=== PATIENT | female | born 1980 | race Caucasian/White ===

== ENCOUNTER 2018-01-17 13:00 | Outpatient (RCR) | payer MEDICAID, SELFPAY ==
--- NOTE | 2018-01-08 10:26 | COCO.CNN ---
Primary Reason for Visit Substance Abuse (TOBACCO) Referral to Care Coordination Referral to Care Coordination: No Referral to Services: No - Referral From Referral From: Self Care Plan - Plan of Care Assessment/Background: 01/03/2018. Saw client in office for tobacco quit. two weeks with NRT patch 21 mg. Plan of Care: scheduled check in two weeks, prep to taper
--- NOTE | 2018-01-17 15:28 | COCO.CNN ---
Primary Reason for Visit Substance Abuse (TOBACCO) Referral to Care Coordination Referral to Care Coordination: No Referral to Services: No - Referral From Referral From: Self Care Plan - Plan of Care Assessment/Background: 01/17/2018. Client is in succesful tobacco quit attempt. tapering to 14 mg patch. Plan of Care: follow up in ten days [facility] Self Management Plan Complete?: Yes Self Management Goals: Quit tobacco Confidence Level (enter 1-10): 9 Action Plan/Progress: 1. taper to 14 mg patch. 2. remain smoke free
== END 2018-07-25 13:00 ==
LOC: COCO 13:00
PROVIDERS: PCP Nurse Practitioner Family; Visit Provider Nurse Practitioner Family
DX: R69 Illness, unspecified (principal)

== ENCOUNTER 2018-11-19 13:35 | Outpatient (REF) | payer MEDICAID, SELFPAY | END 2018-11-19 13:55 | LOC: NCHCN 13:35 | PROVIDERS: PCP Nurse Practitioner Family; Visit Provider Specialist/Technologist Athletic Trainer | DX: J02.9 Acute pharyngitis, unspecified (principal) | CPT/HCPCS: 87070 ==

== ENCOUNTER 2019-02-09 10:13 | Outpatient (REF) | payer MEDICAID, SELFPAY ==
[2019-02-12 14:05] LABS: Helicobacter pylori Ag, Feces Positive (NEGAT)
== END 2019-02-09 10:33 ==
LOC: NCHCN 10:13
PROVIDERS: PCP Family Medicine; Visit Provider Family Medicine
DX: R10.13 Epigastric pain (principal); R19.7 Diarrhea, unspecified
CPT/HCPCS: 87338

== ENCOUNTER 2019-05-07 10:25 | Outpatient (CLI) | payer MEDICAID, SELFPAY ==
--- NOTE | 2019-05-07 10:30 | DI.RAD_ITS ---
SYMPTOM/DIAGNOSIS: RT SHOULDER PAIN RIGHT SHOULDER: The bony structures are normally mineralized. The glenohumeral joint is intact. There are mild degenerative changes involving the AC joint. No soft tissue calcifications are evident.
== END 2019-05-07 10:45 ==
PROVIDERS: PCP Family Medicine; Visit Provider Physician Assistant
DX: M25.511 Pain in right shoulder (principal); M19.011 Primary osteoarthritis, right shoulder
CPT/HCPCS: 73030

== ENCOUNTER 2019-05-08 15:41 | Outpatient (REF) | payer MEDICAID, SELFPAY ==
[2019-05-08 19:37] LABS: Abs Immature Grans 0.01 k/cumm (0.0-0.09); Absolute Basophil Count 0.05 k/cumm (0.0-0.2); Absolute Eosinophil Count 0.36 k/cumm (0.0-0.7); Absolute Lymphocyte Count 2.46 k/cumm (1.2-3.4); Absolute Monocyte Count 1.02 k/cumm (0.11-0.7); Absolute Neutrophil Count 4.41 k/cumm (1.2-6.7); Basophils % 0.6; Eosinophils % 4.3; HCT 36.8 % (36.0-46.0); HGB 12.2 g/dL (12.0-15.5); Immature Grans % 0.1; Lymphocytes % 29.6; Mean Corp. HGB Concentration 33.2 g/dL (32.0-36.0); Mean Corpuscular Hemoglobin 27.9 pg (27.0-33.0); Mean Corpuscular Volume 84.2 fL (80-95); Mean Platelet Volume 11.9 fL (8.0-11.0); Monocytes % 12.3; Neutrophils % 53.1; Platelet Count 253 x1000/uL (130-400); RBC 4.37 m/cumm (4.00-5.20); RBC Distribution Width 13.5 % (11.7-14.6); White Blood Cell Count 8.31 k/cumm (4.4-10.8)
[2019-05-08 20:09] LABS: FREE T4 1.33 ng/dL (0.76-1.46); TSH 0.03 uIU/mL (0.358-3.74)
[2019-05-10 16:29] LABS: T3,Free 4.8 pg/ml (2.8-5.3)
== END 2019-05-08 16:01 ==
LOC: NCHCN 15:41
PROVIDERS: PCP Family Medicine; Visit Provider Family Medicine
DX: R05 Cough (principal); E03.9 Hypothyroidism, unspecified
CPT/HCPCS: 84439; 84443; 84481; 85025

== ENCOUNTER 2019-05-14 00:43 | Outpatient (CLI) | payer MEDICAID, SELFPAY ==
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
--- NOTE | 2019-05-14 16:29 | DI.VRAD_ITS ---
EXAM: MR Right Upper Extremity Joint Without Contrast, Shoulder EXAM DATE/TIME: 05/14/2019 8:40 AM CLINICAL HISTORY: 38 years old, female; Pain; Shoulder; Right; Patient HX: Numbness 4th and 5th digit TECHNIQUE: Imaging protocol: MR of the Right upper extremity without contrast. Exam focused on the shoulder. COMPARISON: CR XR shoulder RT complete 2+V 05/07/2019 10:32 AM FINDINGS: TENDONS: Supraspinatus: Partial-thickness undersurface tear near the femoral attachment site. Infraspinatus: Unremarkable. No evidence of tear. Subscapularis: Unremarkable. No evidence of tear. Teres minor: Unremarkable. No evidence of tear. Biceps brachii, long head: Horizontal split tear of the tendon as it overlies the humeral head. LIGAMENTS: Glenohumeral: Unremarkable. Glenoid labrum: Unremarkable. No evidence of tear. Cartilage: Unremarkable. Fluid: No joint effusion. Muscles: Unremarkable. Bones/joints: Mild a.c. joint arthrosis. No acute osseous findings. Remaining marrow signal appears normal. The IMPRESSION: 1. Partial-thickness supraspinatus tendon tear. 2. Biceps tendon long head horizontal split tear. 3. Mild a.c. joint arthrosis. Dictated and Authenticated by: Mohan Ortiz MD. Ordering:JERSEY Dexter MD
== END 2019-05-14 01:03 ==
PROVIDERS: PCP Family Medicine; Visit Provider Orthopaedic Surgery
DX: M75.81 Other shoulder lesions, right shoulder (principal); M25.511 Pain in right shoulder; R60.0 Localized edema; M75.101 Unspecified rotator cuff tear or rupture of right shoulder, not specified as traumatic
CPT/HCPCS: 73221

== ENCOUNTER 2019-05-14 15:33 | Outpatient (REF) | payer MEDICAID, SELFPAY ==
[2019-05-15 12:31] LABS: Chlamydia Result Negative; GC Result Negative; Specimen Description CERVIX
== END 2019-05-14 15:53 ==
LOC: LBN 15:33
PROVIDERS: PCP Family Medicine; Visit Provider Nurse Practitioner Family
DX: Z11.3 Encounter for screening for infections with a predominantly sexual mode of transmission (principal)
CPT/HCPCS: 87491; 87591

== ENCOUNTER 2019-10-30 11:53 | Outpatient (REF) | payer MEDICAID, SELFPAY ==
[2019-10-30 20:12] LABS: TSH 0.02 uIU/mL (0.36-3.74); Vitamin B12 299 pg/mL (193-986)
[2019-10-30 20:57] LABS: FREE T4 1.47 ng/dL (0.76-1.46)
[2019-11-01 16:31] LABS: T3, Total 226 ng/dL (97-169)
== END 2019-10-30 12:13 ==
LOC: NCHCN 11:53
PROVIDERS: PCP Family Medicine; Visit Provider Family Medicine
DX: E03.9 Hypothyroidism, unspecified (principal)
CPT/HCPCS: 82607; 84439; 84443; 84480

== ENCOUNTER 2020-01-21 11:45 | Outpatient (REF) | payer MEDICAID, SELFPAY ==
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
== END 2020-01-21 12:05 ==
LOC: LBN 11:45
PROVIDERS: PCP Family Medicine; Visit Provider Nurse Practitioner Family
DX: Z12.4 Encounter for screening for malignant neoplasm of cervix (principal); Z11.51 Encounter for screening for human papillomavirus (HPV)
CPT/HCPCS: 88142; 87624

== ENCOUNTER 2021-07-03 13:55 | Outpatient (REF) | payer MEDICAID, SELFPAY ==
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
[2021-07-04 15:40] LABS: Chlamydia Result Negative (Negative); GC Result Negative (Negative)
== END 2021-07-03 13:56 | disposition home or self-care (01) ==
LOC: LBN 13:55
PROVIDERS: PCP Family Medicine; Visit Provider Nurse Practitioner Family
DX: Z11.3 Encounter for screening for infections with a predominantly sexual mode of transmission (principal); Z12.4 Encounter for screening for malignant neoplasm of cervix; Z11.51 Encounter for screening for human papillomavirus (HPV); R87.810 Cervical high risk human papillomavirus (HPV) DNA test positive
CPT/HCPCS: 87491; 87591; 88142; 87624

== ENCOUNTER 2021-07-07 10:34 | Outpatient (REF) | payer MEDICAID, SELFPAY ==
[2021-07-07 14:59] LABS: HGB 13.3 g/dL (11.2-15.7); MCH 29.4 pg (27.0-33.0); MCHC 33.3 % (32.0-36.0); MCV 88.5 fL (80-95); MPV 11.8 fL (8.0-11.0); Platelet Count 308 10^3/uL (130-400); RBC 4.52 10^6/uL (3.93-5.22); RDW 13.6 % (11.7-14.6); RDW-SD 44.3 fL; WBC 12.67 10^3/uL (4.4-10.8)
[2021-07-07 15:26] LABS: ALT 25 U/L (14-59); AST 19 U/L (15-37); Albumin 3.9 g/dL (3.4-5.0); Alkaline Phosphatase 68 U/L (46-116); Anion Gap 5.8 mmol/L (3-11); BUN 9 mg/dL (7-18); Bilirubin, Total 0.6 mg/dL (0.2-1.0); CO2 23.2 mmol/L (21.0-32.0); CREATININE 0.8 mg/dL (0.55-1.02); Calculated LDL 107 mg/dL (<100); Chloride 107 mmol/L (98-107); Cholesterol 165 mg/dL (<200); Glucose 94 mg/dL (74-106); HDL Cholesterol 44 mg/dL (40-60); Potassium 4.3 mmol/L (3.5-5.1); Sodium 136 mmol/L (136-145); TSH 3.57 uIU/mL (0.36-3.74); Total Protein 7.2 g/dL (6.4-8.2); Triglyceride 70 mg/dL (<150)
[2021-07-10 09:37] LABS: Vitamin D 25 Total 32.8 ng/mL (30-100)
== END 2021-07-07 10:35 | disposition home or self-care (01) ==
LOC: NCHCN 10:34
PROVIDERS: PCP Family Medicine; Visit Provider Nurse Practitioner Family
DX: E55.9 Vitamin D deficiency, unspecified (principal); R10.11 Right upper quadrant pain; E03.9 Hypothyroidism, unspecified; E78.5 Hyperlipidemia, unspecified
CPT/HCPCS: 80053; 80061; 82306; 85027; 84443

== ENCOUNTER 2021-07-19 01:36 | Outpatient (CLI) | payer MEDICAID, SELFPAY ==
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
== END 2021-07-19 01:56 ==
PROVIDERS: PCP Family Medicine; Visit Provider Nurse Practitioner Family
DX: M25.561 Pain in right knee (principal)
CPT/HCPCS: 73562

== ENCOUNTER 2021-07-27 01:52 | Outpatient (CLI) | payer MEDICAID, SELFPAY ==
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
== END 2021-07-27 02:12 ==
PROVIDERS: PCP Family Medicine; Visit Provider Nurse Practitioner Family
DX: N93.9 Abnormal uterine and vaginal bleeding, unspecified (principal)
CPT/HCPCS: 76830; 76856

== ENCOUNTER 2021-08-07 08:50 | Outpatient (REF) | payer MEDICAID, SELFPAY ==
[2021-08-07 21:32] LABS: TSH (W/Ref FT4) 9.18 uIU/mL (0.36-3.74)
== END 2021-08-07 08:51 | disposition home or self-care (01) ==
LOC: NCHCN 08:50
PROVIDERS: PCP Family Medicine; Referring Provider Nurse Practitioner Family; Visit Provider Nurse Practitioner Family
DX: E03.9 Hypothyroidism, unspecified (principal)
CPT/HCPCS: 84439; 84443; 84481

== ENCOUNTER 2021-09-29 14:52 | Outpatient (REF) | payer MEDICAID, SELFPAY ==
[2021-09-29 19:28] LABS: FREE T4 1.14 ng/dL (0.76-1.46)
== END 2021-09-29 14:53 | disposition home or self-care (01) ==
LOC: NCHCN 14:52
PROVIDERS: PCP Family Medicine; Visit Provider Nurse Practitioner Family
DX: E03.9 Hypothyroidism, unspecified (principal)
CPT/HCPCS: 84439

== ENCOUNTER 2022-08-10 09:24 | Outpatient (REF) | payer MEDICAID, SELFPAY ==
[2022-08-10 15:12] LABS: FREE T4 0.89 ng/dL (0.76-1.46); TSH 18.32 uIU/mL (0.36-3.74)
== END 2022-08-10 09:25 | disposition home or self-care (01) ==
LOC: NCHCN 09:24
PROVIDERS: PCP Family Medicine; Visit Provider Nurse Practitioner Family
DX: E03.9 Hypothyroidism, unspecified (principal); M25.552 Pain in left hip; Z00.00 Encounter for general adult medical examination without abnormal findings
CPT/HCPCS: 84439; 84443

== ENCOUNTER → 2022-08-16 12:12 | Outpatient (CLI) | payer MEDICAID, SELFPAY ==
--- NOTE | 2022-08-16 | DI.RAD_ITS ---
Exam(s) XR HIP LT COMPLETE AP PELVIS EXAM: XR HIP LT COMPLETE AP PELVIS INDICATION: LT HIP PAIN, M25.552. COMPARISON: CR LUMBAR SPINE COMPLETE from 04/16/2018 TECHNIQUE: 2D digital imaging was performed. Two views. FINDINGS: the hip joint spaces are well maintained. There is mild acetabular spurring bilaterally. SI joints an d pubic symphysis are unremarkable. IMPRESSION: Mild degenerative changes. DATA REPOSITORY: RADIATION DOSE DELIVERED:
== END ==
PROVIDERS: PCP Family Medicine; Visit Provider Family Medicine
DX: M16.12 Unilateral primary osteoarthritis, left hip (principal)
CPT/HCPCS: 73502

== ENCOUNTER 2022-08-28 16:51 | Outpatient (REF) | payer MEDICAID, SELFPAY ==
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
[2022-08-29 14:45] LABS: Chlamydia Result Negative (Negative); GC Result Negative (Negative)
== END 2022-08-28 16:52 | disposition home or self-care (01) ==
LOC: LBN 16:51
PROVIDERS: PCP Family Medicine; Visit Provider Obstetrics & Gynecology
DX: R10.2 Pelvic and perineal pain (principal); Z12.4 Encounter for screening for malignant neoplasm of cervix; Z11.51 Encounter for screening for human papillomavirus (HPV); A59.01 Trichomonal vulvovaginitis; Z11.3 Encounter for screening for infections with a predominantly sexual mode of transmission
CPT/HCPCS: 87491; 87591; 88142; 87480; 87510; 87624; 87660

== ENCOUNTER 2023-04-25 17:03 | Outpatient (REF) | payer MEDICAID, SELFPAY ==
[2023-04-25 19:03] LABS: ESR 8 mm/hr (0-20)
[2023-04-25 19:28] LABS: FREE T4 0.98 ng/dL (0.76-1.46); TSH 0.87 uIU/mL (0.36-3.74)
[2023-04-25 20:10] LABS: Vitamin B12 257 pg/mL (193-986)
[2023-04-26 18:25] LABS: T3, Total 142 ng/dL (97-169)
[2023-04-29 10:15] LABS: Lyme Ab w Rflx to Lyme Confirm Negative (Negative)
[2023-04-29 13:52] LABS: HLA-B27 Result Negative
[2023-04-29 15:21] LABS: ANA Interpretation Negative (Negative)
[2023-04-29 19:54] LABS: Anaplasma phagocytophilum Negative (Negative); B. miyamotoi PCR Negative (Negative); Babesia divergens/MO-1 Negative (Negative); Babesia duncani Negative (Negative); Babesia microti Negative (Negative); Ehrlichia chaffeensis Negative (Negative); Ehrlichia ewingii/canis Negative (Negative); Ehrlichia muris eauclairensis Negative (Negative)
== END 2023-04-25 17:04 | disposition home or self-care (01) ==
LOC: NCHCN 17:03
PROVIDERS: PCP Family Medicine; Visit Provider Family Medicine
DX: M54.16 Radiculopathy, lumbar region (principal); H53.9 Unspecified visual disturbance; M25.552 Pain in left hip; E03.9 Hypothyroidism, unspecified
CPT/HCPCS: 85652; 86812; 87798; 82607; 84439; 84443; 84480; 86038; 86140; 86618

== ENCOUNTER 2023-05-20 11:02 | Outpatient (REF) | payer MEDICAID, SELFPAY ==
[2023-05-20 17:49] LABS: Abs Immature Grans 0.04 10^3/uL (0.0-0.06); Absolute Basophil Count 0.07 10^3/uL (0.0-0.2); Absolute Eosinophil Count 0.41 10^3/uL (0.0-0.7); Basophils % 0.6; Eosinophils % 3.4; HCT 38.7 % (36.0-46.0); HGB 12.9 g/dL (11.2-15.7); Immature Grans % 0.3; Lymphocytes % 18.9; MCH 28.4 pg (27.0-33.0); MCHC 33.3 % (32.0-36.0); MCV 85 fL (80-95); MPV 11.8 fL (8.0-11.0); Monocytes % 7.9; Neutrophils % 68.9; Platelet Count 252 10^3/uL (130-400); RBC 4.55 10^6/uL (3.93-5.22); RDW 14.5 % (11.7-14.6); RDW-SD 44.6 fL; WBC 12.09 10^3/uL (4.4-10.8)
[2023-05-20 17:58] LABS: Absolute Lymphocyte Count 2.29 10^3/uL (1.2-3.4); Absolute Monocyte Count 0.96 10^3/uL (0.1-0.8); Absolute Neutrophil Count 8.33 10^3/uL (1.2-6.7)
[2023-05-20 19:17] LABS: ALT 29 U/L (14-59); AST 23 U/L (15-37); Albumin 3.6 g/dL (3.4-5.0); Alkaline Phosphatase 88 U/L (46-116); Anion Gap 10.5 mmol/L (3-11); BUN 13 mg/dL (7-18); Bilirubin, Total 0.4 mg/dL (0.2-1.0); CO2 25.5 mmol/L (21.0-32.0); CREATININE 0.7 mg/dL (0.55-1.02); Calcium 8.8 mg/dL (8.5-10.1); Chloride 106 mmol/L (98-107); Estimated GFR 109.98 (mL/min/1.73m2); Glucose 92 mg/dL (74-106); Potassium 4.3 mmol/L (3.5-5.1); Sodium 142 mmol/L (136-145); Total Protein 6.8 g/dL (6.4-8.2)
[2023-05-22 14:22] LABS: Hepatitis C Ab w Rflx HCV PCR Negative (Negative)
[2023-05-22 17:00] LABS: HIV-1/2 Ag & Ab Screen Negative (Negative)
== END 2023-05-20 11:03 | disposition home or self-care (01) ==
LOC: NCHCN 11:02
PROVIDERS: PCP Family Medicine; Visit Provider Family Medicine
DX: B39.9 Histoplasmosis, unspecified (principal); H53.9 Unspecified visual disturbance; R10.11 Right upper quadrant pain; F10.90 Alcohol use, unspecified, uncomplicated; Y90.9 Presence of alcohol in blood, level not specified
CPT/HCPCS: 80053; 86698; 86803; 87389; 85025

== ENCOUNTER 2023-06-06 02:08 | Outpatient (CLI) | payer MEDICAID, SELFPAY ==
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
== END 2023-06-06 02:28 ==
LOC: DI 02:08
PROVIDERS: PCP Family Medicine; Visit Provider Family Medicine
DX: Q44.0 Agenesis, aplasia and hypoplasia of gallbladder (principal); R10.11 Right upper quadrant pain; Z90.49 Acquired absence of other specified parts of digestive tract; Z81.1 Family history of alcohol abuse and dependence
CPT/HCPCS: 76705

== ENCOUNTER 2023-06-17 14:53 | Outpatient (REF) | payer MEDICAID, SELFPAY ==
[2023-06-17 16:53] LABS: TSH (W/Ref FT4) 0.08 uIU/mL (0.36-3.74)
[2023-06-17 17:17] LABS: FREE T4 1.32 ng/dL (0.76-1.46)
== END 2023-06-17 14:54 | disposition home or self-care (01) ==
LOC: NCHCN 14:53
PROVIDERS: PCP Family Medicine; Visit Provider Family Medicine
DX: E03.9 Hypothyroidism, unspecified (principal)
CPT/HCPCS: 84439; 84443

== ENCOUNTER 2023-09-06 17:11 | Outpatient (REF) | payer MEDICAID, SELFPAY ==
[2023-09-06 15:56] LABS: Anion Gap 10.3 mmol/L (3-11); BUN 14 mg/dL (7-18); CO2 22.7 mmol/L (21.0-32.0); CREATININE 0.8 mg/dL (0.55-1.02); Calcium 9.2 mg/dL (8.5-10.1); Chloride 104 mmol/L (98-107); Estimated GFR 93.12 (mL/min/1.73m2); Glucose 92 mg/dL (74-106); Potassium 4.1 mmol/L (3.5-5.1); Sodium 137 mmol/L (136-145)
== END 2023-09-06 17:12 | disposition home or self-care (01) ==
LOC: NCHCN 17:11
PROVIDERS: PCP Family Medicine; Visit Provider Family Medicine
DX: I10 Essential (primary) hypertension (principal)
CPT/HCPCS: 80048

== ENCOUNTER 2023-09-07 06:44 | Emergency (ER) | payer MEDICAID, SELFPAY ==
[2023-09-07] VITALS (33 sets, daily range): BP systolic 136–177; BP diastolic 86–98; PULSE 54–79; RESP 9–30; TEMP 36; O2SAT 96–100
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
[2023-09-07 07:16] LABS: Abs Immature Grans 0.17 10^3/uL (0.0-0.06); Absolute Eosinophil Count 0.32 10^3/uL (0.0-0.7); Absolute Lymphocyte Count 2.06 10^3/uL (1.2-3.4); Absolute Monocyte Count 1.32 10^3/uL (0.1-0.8); Basophils % 0.5; Eosinophils % 1.7; HCT 38.7 % (36.0-46.0); HGB 12.8 g/dL (11.2-15.7); Immature Grans % 0.9; Lymphocytes % 11.1; MCH 28.3 pg (27.0-33.0); MCHC 33.1 % (32.0-36.0); MCV 86 fL (80-95); MPV 11.5 fL (8.0-11.0); Monocytes % 7.1; Neutrophils % 78.7; Platelet Count 288 10^3/uL (130-400); RBC 4.52 10^6/uL (3.93-5.22); RDW 14.6 % (11.7-14.6); RDW-SD 46.2 fL; WBC 18.58 10^3/uL (4.4-10.8)
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
[2023-09-07 07:18] LABS: Absolute Basophil Count 0.09 10^3/uL (0.0-0.2); Absolute Neutrophil Count 14.62 10^3/uL (1.2-6.7)
[2023-09-07] MEDS: HYDROmorphone 2 MG/ML SYR IVP (07:22)
[2023-09-07 07:27] LABS: PTT Activated 22.5 sec (23.6-32.8); Prothrombin Time 10.3 sec (9.1-11.1)
[2023-09-07] MEDS: Normal Saline - Diluent 50 ML VIAL IJ (07:30)
[2023-09-07 07:31] LABS: Lipase 70 U/L (16-77)
[2023-09-07 07:33] LABS: ALT 60 U/L (14-59); AST 94 U/L (15-37); Albumin 3.5 g/dL (3.4-5.0); Alkaline Phosphatase 80 U/L (46-116); Anion Gap 9.7 mmol/L (3-11); BUN 16 mg/dL (7-18); Bilirubin, Total 0.5 mg/dL (0.2-1.0); CO2 23.3 mmol/L (21.0-32.0); Calcium 8.6 mg/dL (8.5-10.1); Chloride 107 mmol/L (98-107); Estimated GFR 71.24 (mL/min/1.73m2); Glucose 121 mg/dL (74-106); Magnesium 2.2 mg/dL (1.8-2.4); Potassium 3.7 mmol/L (3.5-5.1); Sodium 140 mmol/L (136-145); Total Protein 7.1 g/dL (6.4-8.2)
[2023-09-07] MEDS: Omnipaque 350 MG/ML 100 ML BTL IJ (07:33)
[2023-09-07] MEDS: Normal Saline Flush 10 ML SYR IVP (07:34)
[2023-09-07 07:45] LABS: ETHANOL BLOOD < 3.0 mg/dL (<10)
[2023-09-07] MEDS: Normal Saline 1,000 ML 30 ML IV (08:06)
[2023-09-07 08:21] LABS: Bilirubin Negative (Negative); Blood Large (Negative); Clarity Sl Cloudy (Clear); Glucose Negative (Negative); Ketones Negative (Negative); Leukocyte Esterase Negative (Negative); Nitrite Negative (Negative); Urobilinogen 0.2 mg/dL (Up to 0.2); pH 5.5 (5-8)
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
[2023-09-07 08:27] LABS: Bacteria Few HPF (Negative); Crystals Negative HPF (Negative); Epithelial Cells Moderate HPF (Negative); Mucus Moderate (Negative); WBC 0-2 HPF (0-5)
[2023-09-07 08:28] LABS: C & S Indicated? No/Sq. Contamination; Casts 0-2 Coarse Granular LPF (Negative)
[2023-09-07 08:34] LABS: *AMPHETAMINES SCREEN URINE Negative (Negative); *BARBITURATES SCREEN URINE Negative (Negative); *BENZODIAZEPINES SCREEN URINE Negative (Negative); Cannabinoids THC Positive (Negative); Cocaine Screen,Urine Negative (Negative); METHADONE URINE SCREEN Negative (Negative); OPIATES URINE SCREEN Positive (Negative)
[2023-09-07 08:36] LABS: Tricyclic Antidepressants Negative (Negative)
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
[2023-09-07] MEDS: HYDROmorphone 2 MG/ML SYR 1 MG IVP (09:10)
== END 2023-09-07 10:26 | disposition short-term general hospital (02) ==
PROVIDERS: Emergency Medicine; Emergency Provider Emergency Medicine; PCP Family Medicine
DX: S22.42XA Multiple fractures of ribs, left side, initial encounter for closed fracture (principal); S12.101A Unspecified nondisplaced fracture of second cervical vertebra, initial encounter for closed fracture; S32.011A Stable burst fracture of first lumbar vertebra, initial encounter for closed fracture; S22.088A Other fracture of T11-T12 vertebra, initial encounter for closed fracture; S06.6X0A Traumatic subarachnoid hemorrhage without loss of consciousness, initial encounter; S27.322A Contusion of lung, bilateral, initial encounter; V43.52XA Car driver injured in collision with other type car in traffic accident, initial encounter; Y92.413 State road as the place of occurrence of the external cause
CPT/HCPCS: 36415; 74177; 80053; 80307; 83690; 93005; 96361; 96374; 99285; 70450; 71045; 71260; 72125; 72170; 80320; 81003; 81015; 83735; 85025; 85610; 85730; 93010; J1170; J3490

== ENCOUNTER → 2023-10-03 01:23 | Outpatient (CLI) | payer MEDICAID, SELFPAY ==
--- NOTE | 2023-10-03 | DI.US_ITS ---
Exam(s) US ABDOMEN EXAM: US ABDOMEN CLINICAL HISTORY: ENLARGED RIGHT LIVER LOBE R16.0 TECHNIQUE: Ultrasound of complete upper abdomen performed using standard protocol. COMPARISON: US US ABDOMEN LIMITED from 06/06/[address] CHEST/ABD/PEL W from 09/07/2023 FINDINGS: There is no ascites evident. LIVER: There are no hepatic lesions evident nor obvious dilatation of intrahepatic ducts. Liver size appears upper normal. GALLBLADDER/BILIARY: Gallbladder surgically absent. The common hepatic duct isnot dilated, measuring 4mm at the level of fox hepatis. PANCREAS: There is no evidence of pancreatic mass nor dilatation of the pancreatic duct. SPLEEN: The spleen is not enlarged and there are no intrasplenic lesions evident. KIDNEYS:Kidneys exhibit normal size with no evidence of solid mass, calculus, nor hydronephrosis. No cortical cysts evident. ABDOMINAL AORTA: There is no evidence of abdominal aortic aneurysm. IVC: Normal diameter where visualized. IMPRESSION: 1. Gallbladder surgically absent. The biliary tree is not dilated 2. Liver size is upper normal. No obvious steatosis. No focal hepatic lesions. 3. There is no ascites. DATA REPOSITORY:
== END ==
PROVIDERS: PCP Family Medicine; Visit Provider Family Medicine
DX: Z90.49 Acquired absence of other specified parts of digestive tract (principal); R16.0 Hepatomegaly, not elsewhere classified
CPT/HCPCS: 76700

== ENCOUNTER 2023-10-03 08:57 | Emergency (ER) | payer MEDICAID, SELFPAY ==
[2023-10-03 08:59] VITALS: BP 159/106; PULSE 80; RESP 16; TEMP 37.2; O2SAT 98
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
[2023-10-03] MEDS: Cortisporin OTIC SUSP 10 ML BTL AD (09:34)
[2023-10-03 09:37] VITALS: BP 159/106; PULSE 80; RESP 16; TEMP 37.2; O2SAT 98
== END 2023-10-03 09:38 | disposition home or self-care (01) ==
LOC: ER 09:44
PROVIDERS: Emergency Provider Registered Nurse Emergency; PCP Family Medicine
DX: H60.91 Unspecified otitis externa, right ear (principal)
CPT/HCPCS: 99282

== ENCOUNTER 2023-10-07 19:01 | Outpatient (REF) | payer MEDICAID, SELFPAY ==
[2023-10-07 19:33] LABS: BUN 11 mg/dL (7-18); CREATININE 0.7 mg/dL (0.55-1.02); Calcium 9.4 mg/dL (8.5-10.1); Chloride 102 mmol/L (98-107); Glucose 101 mg/dL (74-106); Potassium 4.1 mmol/L (3.5-5.1); Sodium 138 mmol/L (136-145)
== END 2023-10-07 19:02 | disposition home or self-care (01) ==
LOC: NCHCN 19:01
PROVIDERS: PCP Family Medicine; Visit Provider Nurse Practitioner Family
DX: I10 Essential (primary) hypertension (principal)
CPT/HCPCS: 80048

== ENCOUNTER 2023-12-16 08:49 | Outpatient (CLI) | payer MEDICAID, SELFPAY ==
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
== END 2023-12-16 08:50 | disposition home or self-care (01) ==
PROVIDERS: PCP Family Medicine; Visit Provider Family Medicine
DX: Z04.3 Encounter for examination and observation following other accident (principal); X58.XXXA Exposure to other specified factors, initial encounter
CPT/HCPCS: 93246

== ENCOUNTER 2024-01-07 09:15 | Outpatient (CLI) | payer MEDICAID, SELFPAY | END 2024-01-07 09:16 | disposition home or self-care (01) | LOC: CARDOPNVT 09:15 | PROVIDERS: PCP Family Medicine; Visit Provider Internal Medicine Cardiovascular Disease | DX: R52 Pain, unspecified (principal); V89.2XXD Person injured in unspecified motor-vehicle accident, traffic, subsequent encounter ==

== ENCOUNTER 2024-01-21 17:47 | Outpatient (REF) | payer MEDICAID, SELFPAY ==
[2024-01-21 16:33] LABS: FREE T4 0.87 ng/dL (0.76-1.46); TSH 12.37 uIU/Ml (0.36-3.74)
[2024-01-21 17:26] LABS: Vitamin B12 413 pg/mL (193-986)
== END 2024-01-21 17:48 | disposition home or self-care (01) ==
LOC: NCHCN 17:47
PROVIDERS: PCP Family Medicine; Visit Provider Family Medicine
DX: E03.9 Hypothyroidism, unspecified (principal); E53.9 Vitamin B deficiency, unspecified
CPT/HCPCS: 82607; 84439; 84443

== ENCOUNTER 2024-01-31 02:09 | Outpatient (CLI) | payer MEDICAID, SELFPAY ==
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
== END 2024-01-31 02:10 | disposition home or self-care (01) ==
LOC: RT 02:09
PROVIDERS: PCP Family Medicine; Visit Provider Family Medicine
DX: S06.2XAA Diffuse traumatic brain injury with loss of consciousness status unknown, initial encounter (principal); X58.XXXA Exposure to other specified factors, initial encounter
CPT/HCPCS: 95819

== ENCOUNTER 2024-03-12 05:00 | Outpatient (CLI) | payer MEDICAID, SELFPAY ==
[2024-03-12 12:39] LABS: Hemoglobin A1C 5.4 % (<5.7)
[2024-03-12 12:51] LABS: Vitamin D 25 Total 36.2 ng/mL (30-100)
[2024-03-12 12:56] LABS: TSH (W/Ref FT4) 15.14 uIU/mL (0.36-3.74); Vitamin B12 325 pg/mL (193-986)
[2024-03-12 13:19] LABS: FREE T4 0.97 ng/dL (0.76-1.46)
== END 2024-03-12 05:01 | disposition home or self-care (01) ==
LOC: LOS 05:00
PROVIDERS: PCP Family Medicine; Visit Provider Internal Medicine Endocrinology, Diabetes & Metabolism
DX: E03.9 Hypothyroidism, unspecified (principal); E53.9 Vitamin B deficiency, unspecified; E55.9 Vitamin D deficiency, unspecified; Z68.41 Body mass index [BMI] 40.0-44.9, adult
CPT/HCPCS: 36415; 82306; 82607; 83036; 84439; 84443

== ENCOUNTER 2024-06-17 10:30 | Emergency (ER) | payer MEDICAID, SELFPAY ==
[2024-06-17 10:35] VITALS: BP 146/92; PULSE 78; RESP 16; TEMP 36.3; O2SAT 99
--- NOTE | 2024-06-17 10:45 | DI.RAD_ITS ---
Exam(s) XR THORACIC SPINE COMPLETE EXAM: XR THORACIC SPINE COMPLETE CLINICAL HISTORY: hx spinal fracture, back pain. TECHNIQUE: 2D digital imaging was performed of the thoracic spine. Three views were obtained. AP, swimmer's and lateral views were obtained. COMPARISON: CR,XR XR PORTABLE CHEST AP from 09/07/2023 FINDINGS: BONES: There is no fracture or destructive lesion. The vertebral bodies and posterior elements are un remarkable. Old left rib fractures are again noted. DISKS:There is a mild left convex curvature of the thoracic spine. Mild degenerative changes are pre sent throughout the thoracic spine characterized by joint space narrowing and small osteophytes. SOFT TISSUE: Visualized lungs are clear. IMPRESSION: 1. No acute fracture or subluxation in the thoracic spine. 2. Mild degenerative changes are present throughout the thoracic spine. DATA REPOSITORY: RADIATION DOSE DELIVERED:
--- NOTE | 2024-06-17 10:45 | DI.RAD_ITS ---
Exam(s) XR LUMBAR SPINE AP, LAT EXAM: XR LUMBAR SPINE AP, LAT CLINICAL HISTORY: hx spinal fracture, back pain. TECHNIQUE: 2D digital imaging was performed of the lumbar spine. Three images were obtained. AP, l ateral, and L5-S1 spot views were obtained. COMPARISON: CR XR KNEE RT 3V AP,LAT,ANTHONY from 07/19/[address] THORACIC LUMBAR SPINE REC from 09/07/2023 FINDINGS: BONES: No fracture or destructive lesion. There is again seen an old L1 compression fracture deformit y. No facet hypertrophy identified. DISKS: There is narrowing of the T12-L1 disc space. ALIGNMENT: Lumbar spinal alignment is within normal limits. No spondylolysis or spondylolisthesis. SOFT TISSUE: Vascular calcifications are present. IMPRESSION: 1. No acute fracture or subluxation. 2. Old L1 compression fracture deformity. DATA REPOSITORY: RADIATION DOSE DELIVERED:
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
[2024-06-17] MEDS: Dexamethasone 10 MG/ML VIAL PO (11:08)
[2024-06-17] MEDS: Cyclobenzaprine 10 MG TAB PO (11:08)
[2024-06-17] MEDS: Lidocaine 5% Patch 1 PATCH TP (11:09)
[2024-06-17] MEDS: Ketorolac 15 MG/ML VIAL IM (11:09)
== END 2024-06-17 12:17 | disposition home or self-care (01) ==
PROVIDERS: Emergency Provider Emergency Medicine; PCP Family Medicine
DX: M54.50 Low back pain, unspecified (principal); M54.6 Pain in thoracic spine; Z87.81 Personal history of (healed) traumatic fracture; W18.49XA Other slipping, tripping and stumbling without falling, initial encounter
CPT/HCPCS: 96372; 99284; 72072; 72100; 99283; J1100; J1885

== ENCOUNTER → 2024-06-24 01:09 | Outpatient (CLI) | payer MEDICAID, SELFPAY ==
--- NOTE | 2024-06-24 | DI.MAMMO_ITS ---
Exam(s) MAMMO SCREENING EXAM: MAMMO SCREENING CLINICAL HISTORY: SCREENING MAMMO Z12.31 TECHNIQUE: Mammograms were interpreted according to the usual protocol including computer analysis w [employer] CAD system, tomosynthesis and C-view imaging. COMPARISON: None. Baseline examination FINDINGS: The breasts are composed of scattered fibroglandular densities, Breast Density category B. No suspicious masses or suspicious microcalcifications are seen. No skin thickening or abnormal axillary lymph nodes are seen. IMPRESSION: BI-RADS Category 1, Negative mammogram Yearly screening mammography is recommended. Breast Density - Category B, scattered fibroglandular densities. A negative radiographic report should not delay biopsy if a dominant or clinically suspicious mass is present. Up to ten percent of cancers are not identified on mammography. A negative report may reinforce clinical impression. Adenosis and dense breasts may obscure an underlying neoplasm. False positive reports average 6 to 10%. Patient will receive a letter notifying them of these results.
--- NOTE | 2024-06-24 08:09 | DI.RAD_ITS ---
Exam(s) XR TOE LT GREAT EXAM: XR TOE LT GREAT CLINICAL HISTORY: PAIN LEFT TOE M79.675. TECHNIQUE: 2D digital imaging was performed. Three views. COMPARISON: No exams were available for comparison FINDINGS: BONES: No acute fracture is present. No bony destructive lesion is seen. Accessory navicular. JOINTS: No dislocation present. Minimal degenerative changes 1st MTP joint. Minimal hallux valgus. SOFT TISSUE: Normal. IMPRESSION: Minimal degenerative changes 1st MTP joint. Minimal hallux valgus. DATA REPOSITORY: RADIATION DOSE DELIVERED:
== END ==
PROVIDERS: PCP Family Medicine; Visit Provider Family Medicine
DX: Z12.31 Encounter for screening mammogram for malignant neoplasm of breast (principal); M79.675 Pain in left toe(s); M20.12 Hallux valgus (acquired), left foot; M19.072 Primary osteoarthritis, left ankle and foot
CPT/HCPCS: 77063; 77067; 73660

== ENCOUNTER 2024-08-14 15:03 | Outpatient (REF) | payer MEDICAID, SELFPAY ==
[2024-08-14 16:24] LABS: FREE T4 1.25 ng/dL (0.76-1.46); TSH 0.65 uIU/Ml (0.36-3.74)
[2024-08-14 17:01] LABS: Hemoglobin A1C 5.3 % (<5.7)
[2024-08-14 17:02] LABS: Calculated LDL 119 mg/dL (<100); Cholesterol 201 mg/dL (<200); HDL Cholesterol 58 mg/dL (40-60); Triglyceride 121 mg/dL (<150); Vitamin D 25 Total 28.4 ng/mL (30-100)
[2024-08-15 22:32] LABS: T3,Free 5.1 pg/mL (2.8-5.3)
== END 2024-08-14 15:04 | disposition home or self-care (01) ==
LOC: NCHCN 15:03
PROVIDERS: PCP Family Medicine; Visit Provider Family Medicine
DX: E03.9 Hypothyroidism, unspecified (principal); E55.9 Vitamin D deficiency, unspecified; Z00.00 Encounter for general adult medical examination without abnormal findings
CPT/HCPCS: 80061; 82306; 83036; 84439; 84443; 84481

== ENCOUNTER 2024-12-17 09:37 | Outpatient (REF) | payer MEDICAID, SELFPAY ==
--- NOTE | 2024-12-17 09:00 | PAPFT_PTH ---
PATIENT: Belen Liang LOC: [facility]#:[id number] AGE/SX: 44/F ROOM: RE12/17/[address]: Marie Ramsey V : 1980 BED: DIS: 12/17/2024 SPEC #: [id number] RECD: 12/18/24 13:01 STATUS: ELAINE KOCH #: [id number] JENNIFER: 12/17/24 09:[address]: Marie Ramsey V [facility] Cytology RECD BY: Margaret Carmichael Tissues: 1 - CX/ENDOCX FOR PAP SMEARS Procedures: PAP THIN PREP/UVM Screening HPV DNA PROBE Comments: [id number] (HPV 16 & 18/45)
== END 2024-12-17 09:38 | disposition home or self-care (01) ==
LOC: NCHCN 09:37
PROVIDERS: PCP Family Medicine; Visit Provider Family Medicine
DX: Z01.419 Encounter for gynecological examination (general) (routine) without abnormal findings (principal)
CPT/HCPCS: 88142; 87624

== ENCOUNTER 2025-02-15 09:02 | Day surgery (SDC) | payer MEDICAID, SELFPAY ==
--- NOTE | 2025-02-14 14:25 | W.PM.DSUDISC ---
Date of service: 02/15/25 Discharge Plan Disposition Patient Disposition: Home Condition: Good Discharge Details Reason For Visit: screening colonoscopy Attending Provider: Jack Oliva Primary Care Provider: Marie Ramsey V Home Meds and New Rx's Prescriptions: Continued cholecalciferol (vitamin D3) 10,000 UNIT capsule 50,000 unit PO once a week levothyroxine 50 mcg tablet 100 mcg PO DAILY Patient Comments: pt not sure of her dose 12/16/13. Per Alan at [facility] pt.takes TWO 112mcg pills daily. Last RX picked up March 2017 90 day supply 08/28/22- pt reports 175 mcg liothyronine [Cytomel] 25 mcg tablet 25 mcg PO DAILY albuterol sulfate [Ventolin HFA] 90 mcg/actuation HFA aerosol inhaler 2 puff inhalation Q6H PRN cyanocobalamin (vitamin B-12) 1,000 mcg capsule 1,000 mcg PO QMONTH Patient Comments: INJECTION ibuprofen 600 MG tablet 600 mg PO Q6H PRN (Reason: Pain) Qty: 20 0RF indapamide 1.25 mg tablet 1.25 mg PO DAILY Discontinued polyethylene glycol 3350 17 gram/dose powder 238 g PO ONCE Qty: 238 0RF Rx Instructions: take per colonoscopy instructions bisacodyl [Dulcolax (bisacodyl)] 5 mg tablet,delayed release (DR/EC) 5 mg PO ONCE Qty: 4 0RF Rx Instructions: take per colonoscopy instructions Discharge Instructions Additional Instructions: Belen, was very nice meeting you today, and I hope you feel well after the procedure. Everything went very smoothly. Your colonoscopy today was negative and normal. With minimal risk factors, I would encourage you to consider another colonoscopy in 10 years. If you need anything or have any questions, please do not hesitate to ask. 1. If tolerated, consume a soft, low fiber diet for 1-2 days. [address] Do not drive, drink alcohol, operate machinery, make critical decisions, or do activities that require coordination or balance for 24 hours. 3. Because air was put into your colon during the procedure, expelling air from your rectum (passing gas or farting) is normal. 4. You may not have a bowel movement for 1-3 days because of the colonoscopy prep. This is normal. 5. Go directly to the emergency room if you notice any of the following: Develop chills (warm to touch), or if you have a thermometer and your temperature is above 101 Difficulty breathing or difficultly swallowing Persistent vomiting Severe abdominal pain, other than gas cramps Severe chest pain Black, tarry stools Any bleeding ? exceeding one tablespoon 6. Call your physician if the site where your intravenous was started becomes red, swollen, painful, and warm to touch. 7. Your physician has reviewed your pre-procedure medications. Please continue to take those medications as previously ordered. You will be given specific information/education regarding any changes to your medications before leaving. Stand Alone Forms: Anesthesia Discharge InstYordy Tamez (DSU) Activity:: Activity as Tolerated Diet:: As Tolerated Discharge Orders Discharge Orders: Discharge Order (Routine); Ordered 02/14/25 Ordered By: Jack Oliva DS: Diagnosis Discharge Diagnosis (1) Screening for colon cancer: Status: Acute Asessment and Plan: Negative screening colonoscopy; recommend 10-year follow-up
--- NOTE | 2025-02-14 14:26 | COLE_ITS ---
Date of service: 02/15/25 Time of Service: 11:04 Colonoscopy Report Date of procedure: 02/15/25 Pre-op diagnosis general: screening colonoscopy Post-op diagnosis procedure note: other (Negative screening colonoscopy) Procedure: colonoscopy Surgeon: Jack Oliva Anesthesia Type: General:No Airway Estimated blood loss (mL): 0 Pathology: none sent Complications: None Disposition: same day Indications: Belen is a 44 year old woman who needs her first screening colonoscopy Prep: Miralax/Dulcolax Procedure Start Time: 10:31 Procedure End Time: 10:46 Retraction Time: 5 Findings: Negative screening colonoscopy Procedure Description: After the induction of anesthesia, and with the patient in left lateral decubitus position, I began by performing an external anorectal exam.? Perineum and skin were normal, as was the anal verge.? There was no evidence of external hemorrhoids.? Next, I performed a digital rectal exam.? I did not appreciate any abnormal findings.? Next, I advanced a colonoscope into the rectal vault.? I performed retroflexion.? This appeared normal.? Using insufflation, I then advanced the colonoscope beyond the rectal folds and into the sigmoid colon before advancing towards the cecum.? The quality of the prep was excellent.? The scope was noted to be in the cecum by identification of the ileocecal valve and appendiceal orifice.? I then began withdrawing the colonoscope using repeated irrigation as necessary for full evaluation of the colonic mucosa. ?Once the scope was withdrawn to the level of the rectum, great care was taken to examine portions of the rectal folds.? I saw no signs of tumors, polyps, or any other significant pathology. Finally, the scope was withdrawn and the patient was brought to the same-day surgery recovery unit as the anesthetic wore off. ?The findings and instructions were shared with the patient prior to discharge. [place] Bowel Prep Washington Bowel Prep Right Colon: 3 Left Colon: 3 Transverse Colon: 3 Total Score: 9
[2025-02-15 09:28] VITALS: BP 136/89; PULSE 73; RESP 16; TEMP 36.1; O2SAT 100
[2025-02-15] MEDS: Lactated Ringers 1,000 ML 80 ML IV (10:00)
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
[2025-02-15 10:17] VITALS: BMI 35.0
[2025-02-15 10:51] VITALS: BP 126/84; PULSE 82; RESP 18; TEMP 36.6; O2SAT 98
--- NOTE | 2025-02-15 11:10 | W.ANESPOSTOP ---
Postoperative Evaluation Date, Time and Location Date Performed: 02/15/25 Time Performed: 11:10 Patient Location: Day Surgery Unit Vital Signs Most Recent Imported Vital Signs: Most Recent Vital Signs Temp Pulse Resp BP Pulse Ox 36.6 C 82 18 126/84 98 02/15/25 10:51 02/15/25 10:51 02/15/25 10:51 02/15/25 10:51 02/15/25 10:51 Pain Score Most Recent Pain Score: Most Recent Pain Score Pain Level 0 02/15/25 10:51 Assessment Mental Status: Awake (Alert & Oriented to Patient Baseline) Airway and Respiratory Function: Patent airway with normal (patient baseline) respiratory exam Cardiovascular Function: Hemodynamically Stable Hydration Status: Adequately Hydrated Nausea & Vomiting: No Nausea or Vomiting Pain: Pt. Denies Any Pain Peripheral Nerve Block: Patient did not receive a nerve block
[2025-02-15 11:24] VITALS: BP 161/96; PULSE 59; RESP 18; TEMP 36.2; O2SAT 100
== END 2025-02-15 11:30 | disposition home or self-care (01) ==
PROVIDERS: PCP Family Medicine; Visit Provider Surgery
PROC: 0DJD8ZZ Inspection of Lower Intestinal Tract, Via Natural or Artificial Opening Endoscopic (ICD-10-PCS; CPT 45378; principal; 2025-02-15 10:30)
DX: Z12.11 Encounter for screening for malignant neoplasm of colon (principal)
CPT/HCPCS: 45378; 81025; J2704

== ENCOUNTER 2025-05-03 08:55 | Outpatient (CLI) | payer MEDICAID, SELFPAY ==
--- NOTE | 2025-05-03 10:30 | DI.RAD_ITS ---
Exam(s) XR KNEE LT 4V+ EXAM: XR KNEE LT 4V+ CLINICAL HISTORY: evaluate pathology M25.562 PAIN LEFT KNEE. TECHNIQUE: 2D digital imaging was performed. COMPARISON: CR XR KNEE RT 3V AP,LAT,ANTHONY from 07/19/2021 FINDINGS: Four views. No evidence of fracture. There appears to be a small amount of increased joint fluid. Bone density normal. No osseous lesions. No degenerative changes. No osseous lesions. IMPRESSION: No acute osseous findings in the knee. There appears to be a small amount of increased joint fluid. DATA REPOSITORY: RADIATION DOSE DELIVERED:
== END 2025-05-03 09:15 ==
LOC: DI 08:55
PROVIDERS: PCP Family Medicine; Visit Provider Nurse Practitioner Family
DX: M25.562 Pain in left knee (principal)
CPT/HCPCS: 73564

== ENCOUNTER 2025-06-14 00:23 | Outpatient (CLI) | payer MEDICAID, SELFPAY ==
--- NOTE | 2025-06-14 08:04 | DI.MRI_ITS ---
Exam(s) MR LOWER JOINT LT WO EXAM: MR LOWER JOINT LT WO CLINICAL HISTORY: evaluate pathology,lt knee pain, [id number]. TECHNIQUE: Multiplanar multisequence MRI was performed. COMPARISON: CR XR KNEE LT 4V+ from 05/03/2025 FINDINGS: BONES: There is no fracture or contusion pattern. JOINTS: No a small joint effusion is present. Articular cartilage: Patellofemoral joint: Focal thinning of the cartilage at the superior aspect of the patellar apex, extending down to bone. There is high signal in the immediate subjacent bone. Medial femoral tibial joint: Articular cartilage is unremarkable. Lateral femoral tibial joint: Articular cartilage is unremarkable. LIGAMENTS/TENDONS: Anterior Cruciate: Unremarkable. Posterior Cruciate: Unremarkable. Medial Collateral:Unremarkable. Lateral Collateral ligament complex: Unremarkable. Extensor mechanism: Unremarkable. Medial retinaculum: Unremarkable. Lateral retinaculum: Unremarkable. Popliteus: Unremarkable. MENISCI: The medial meniscus is unremarkable. The lateral meniscus is unremarkable. MUSCLES: Unremarkable. SOFT TISSUES: Unremarkable. IMPRESSION: Focal area of cartilage thinning at the superior patellar apex extending down to and involving underlying bone. No ligament tear or meniscal tear. DATA REPOSITORY:
== END 2025-06-14 00:43 ==
LOC: DI 00:23
PROVIDERS: PCP Family Medicine; Visit Provider Nurse Practitioner Family
DX: M25.562 Pain in left knee (principal)
CPT/HCPCS: 73721

== ENCOUNTER 2025-07-11 02:06 | Emergency (ER) | payer MEDICAID, SELFPAY ==
[2025-07-11 02:09] VITALS: BP 154/97; PULSE 98; RESP 18; TEMP 36.5; O2SAT 99
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
[2025-07-11] MEDS: Acetaminophen 500 MG TAB 1000 MG PO (02:42)
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
[2025-07-11 04:43] VITALS: BP 144/74; PULSE 92; RESP 18; TEMP 36.7; O2SAT 96
== END 2025-07-11 04:45 | disposition home or self-care (01) ==
PROVIDERS: Emergency Provider Student in an Organized Health Care Education/Training Program; PCP Family Medicine
DX: S09.90XA Unspecified injury of head, initial encounter (principal); W22.8XXA Striking against or struck by other objects, initial encounter
CPT/HCPCS: 99284; 99283; 70450; 70486; 72125

== ENCOUNTER 2025-07-29 18:31 | Outpatient (REF) | payer MEDICAID, SELFPAY ==
[2025-07-29 21:07] LABS: Anion Gap 8.7 mmol/L (3-11); BUN 16 mg/dL (7-18); CO2 27.3 mmol/L (21.0-32.0); Calcium 9.1 mg/dL (8.5-10.1); Chloride 106 mmol/L (98-107); Estimated GFR 70.80 (mL/min/1.73m2); Glucose 101 mg/dL (74-106); Potassium 4.7 mmol/L (3.5-5.1); Sodium 142 mmol/L (136-145); TSH 0.35 uIU/mL (0.36-3.74)
[2025-07-30 23:21] LABS: T3, Total 187 ng/dL (97-169)
== END 2025-07-29 18:32 | disposition home or self-care (01) ==
LOC: NCHCN 18:31
PROVIDERS: PCP Family Medicine; Visit Provider Family Medicine
DX: I10 Essential (primary) hypertension (principal); E03.9 Hypothyroidism, unspecified
CPT/HCPCS: 80048; 84439; 84443; 84480

== ENCOUNTER 2025-10-06 12:38 | Emergency (ER) | payer MEDICAID, SELFPAY ==
[2025-10-06 12:48] VITALS: BP 164/92; PULSE 80; RESP 20; TEMP 36.9; O2SAT 98
[2025-10-06 12:51] VITALS: BP 164/92; PULSE 80; RESP 20; TEMP 36.9; O2SAT 98
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
[2025-10-06] MEDS: Ibuprofen 600 MG TAB PO (13:32)
[2025-10-06] MEDS: Acetaminophen 500 MG TAB 1000 MG PO (13:32)
[2025-10-06] MEDS: Amoxicillin 875/Clav. 125 TAB PO (13:32)
== END 2025-10-06 13:45 | disposition home or self-care (01) ==
PROVIDERS: Emergency Provider General Practice; PCP Family Medicine
DX: H92.03 Otalgia, bilateral (principal)
CPT/HCPCS: 99283 ×2; 80053; 83605; 85025

== ENCOUNTER 2025-10-24 20:15 | Observation (INO) | payer MEDICAID, SELFPAY ==
[2025-10-24] VITALS (28 sets, daily range): BP systolic 92–161; BP diastolic 60–113; PULSE 67–101; RESP 9–24; TEMP 35.9–36.9; O2SAT 94–99
--- NOTE | 2025-10-24 20:15 | RT.EKG_ITS ---
APPROVED REPORT Exam: Resting ECG Reason for Exam: blacked out Patient Location: E HR:82 bpm ECG Measurements Heart Rate 82 AXIS IL 162 P 63 QRSd 86 QRS 78 QT 371 T 68 QTc 434 Conclusion Sinus rhythm, rate 82 No interval abnormalities No STEMI No significant changes from priors
--- NOTE | 2025-10-24 20:45 | DI.CT_ITS ---
Exam(s) CT HEAD WO EXAM: CT HEAD WO CLINICAL HISTORY: seizure vs syncope, LOC. TECHNIQUE: Imaging Protocol: Axial computed tomography images with coronal and sagittal reformatted images were created and reviewed COMPARISON: CT CT CHEST/ABD/PEL W from 09/07/[address] HEAD CERV SPINE FACIAL WO from 07/11/2025 CR XR CHEST 2V PA LATERAL from 10/24/2025 FINDINGS: There are no skull fractures. There is no fluid in the visualized paranasal sinuses. There is no evidence of intracranial hemorrhage, mass effect, or shift of midline structures. There are no extra-axial fluid collections. The ventricles are not enlarged or shifted and there is no blood within the ventricular system nor within the basal cisterns. IMPRESSION: No acute intracranial findings on this noninfused CT scan of the brain. RADIATION DOSE DELIVERED: 766.62mGy.cm Total DLP DATA REPOSITORY: All CT scans at this facility are submitted to the National Radiology Data Registry (NRDR) Dose Index Registry (DIR) with the [employer] ([employer]). RADIATION OPTIMIZATION: All CT scans at this facility use at least one of these dose optimization techniques: automated exposure control; mA and/or kV adjustment per patient size (includes targeted exams where dose is matched to clinical indication); or iterative reconstruction.
[2025-10-24 21:00] LABS: Abs Immature Grans 0.03 10^3/uL (0.0-0.06); HCT 39.7 % (36.0-46.0); HGB 13.2 g/dL (11.2-15.7); Immature Grans % 0.3 %; MCH 27.8 pg (27.0-33.0); MCHC 33.2 % (32.0-36.0); MCV 84 fL (80-95); MPV 10.4 fL (8.0-11.0); Platelet Count 286 10^3/uL (130-400); RBC 4.75 10^6/uL (3.93-5.22); RDW 14.8 % (11.7-14.6); RDW-SD 44.8 fL; WBC 9.73 10^3/uL (4.4-10.8)
--- NOTE | 2025-10-24 21:00 | DI.RAD_ITS ---
Exam(s) XR CHEST 2V PA LATERAL EXAM: XR CHEST 2V PA LATERAL CLINICAL HISTORY: chest pain. TECHNIQUE: 2D digital imaging was performed. COMPARISON: CR,XR XR PORTABLE CHEST AP from 09/07/[address] CHEST/ABD/PEL W from 09/07/2023 FINDINGS: 2 views: Multiple left-sided rib deformities are again noted from prior rib fractures. Heart size is normal. The mediastinum is not widened. No evidence of lung contusion or pneumothorax nor pleural effusions. No confluent infiltrates. No pulmonary edema. IMPRESSION: No acute pulmonary findings. DATA REPOSITORY: RADIATION DOSE DELIVERED:
[2025-10-24 21:14] LABS: Magnesium 2.0 mg/dL (1.6-2.6)
[2025-10-24 21:15] LABS: ALT 43 U/L (10-49); AST 38 U/L (<34); Albumin 4.3 g/dL (3.2-5.0); Alkaline Phosphatase 106 U/L (46-116); Anion Gap 7.5 mmol/L (3-11); BUN 13 mg/dL (9-23); Bilirubin, Total 0.30 mg/dL (0.2-1.2); CO2 28.5 mmol/L (20.0-31.0); Calcium 8.9 mg/dL (8.3-10.6); Chloride 105 mmol/L (98-107); Glucose 103 mg/dL (74-106); Potassium 3.1 mmol/L (3.5-5.1); Sodium 141 mmol/L (136-145); Total Protein 7.2 g/dL (5.7-8.2)
[2025-10-24 21:17] LABS: TSH (W/Ref FT4) 60.33 uIU/mL (0.55-4.78)
[2025-10-24] MEDS: Normal Saline 1,000 ML 1000 ML IV (21:18)
--- NOTE | 2025-10-24 21:39 | DI.VRAD_ITS ---
PROCEDURE INFORMATION: Exam: CT Head Without Contrast Exam date and time: 10/24/2025 9:03 PM Age: 45 years old Clinical indication: Alteration of consciousness; ? Seizure v/s syncope TECHNIQUE: Imaging protocol: Computed tomography of the head without contrast. Radiation optimization: All CT scans at this facility use at least one of these dose optimization techniques: automated exposure control; mA and/or kV adjustment per patient size (includes targeted exams where dose is matched to clinical indication); or iterative reconstruction. COMPARISON: CT HEAD CERV SPINE FACIAL WO 07/11/2025 3:32 AM FINDINGS: Brain: There is no acute intracranial hemorrhage, mass effect or midline shift. There is no large acute territorial cerebral infarct. Cerebral ventricles: No ventriculomegaly. Paranasal sinuses: Visualized sinuses are unremarkable. No fluid levels. Mastoid air cells: Visualized mastoid air cells are well aerated. Bones: Unremarkable. No acute fracture. Soft tissues: Unremarkable. IMPRESSION: No acute intracranial hemorrhage, mass effect or midline shift. Dictated and Authenticated by: Karo Benjamin MD. Orderin Jono Robles MD
--- NOTE | 2025-10-24 21:39 | DI.VRAD_ITS ---
PROCEDURE INFORMATION: Exam: XR Chest Exam date and time: 10/24/2025 9:09 PM Age: 45 years old Clinical indication: Chest pain TECHNIQUE: Imaging protocol: Radiologic exam of the chest. Views: 2 views. COMPARISON: CT CHEST/ABD/PEL W 09/07/2023 7:52 AM FINDINGS: Lungs: Unremarkable. No consolidation. Pleural spaces: Unremarkable. No pleural effusion. No pneumothorax. Heart/Mediastinum: Unremarkable. No cardiomegaly. Bones/joints: Unremarkable. IMPRESSION: No acute findings. Dictated and Authenticated by: Karo Benjamin MD. Orderin Jono Robles MD
[2025-10-24 21:43] LABS: Glucose Negative (Negative)
[2025-10-24] MEDS: Potassium Chloride 20 MEQ TABCR 40 MEQ PO (21:45)
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
[2025-10-24 21:47] LABS: C & S Indicated? No
[2025-10-24 22:00] LABS: Troponin I < 3 ng/L (<35)
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
[2025-10-24 22:28] LABS: Troponin I < 3 ng/L (<35)
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
[2025-10-25 03:10] VITALS: BP 114/67; PULSE 69; RESP 18; TEMP 36; O2SAT 96
[2025-10-25] MEDS: Levothyroxine 100 MCG TAB 200 MCG PO (06:10)
[2025-10-25 07:15] LABS: HCT 39.4 % (36.0-46.0); HGB 12.9 g/dL (11.2-15.7); MCH 27.5 pg (27.0-33.0); MCHC 32.7 % (32.0-36.0); MCV 84 fL (80-95); MPV 10.9 fL (8.0-11.0); Platelet Count 295 10^3/uL (130-400); RBC 4.69 10^6/uL (3.93-5.22); RDW 15.2 % (11.7-14.6); RDW-SD 45.4 fL; WBC 8.50 10^3/uL (4.4-10.8)
[2025-10-25 07:23] VITALS: BP 135/82; PULSE 70; RESP 16; TEMP 36.7; O2SAT 97
[2025-10-25 07:33] LABS: Anion Gap 7.3 mmol/L (3-11); BUN 14 mg/dL (9-23); CO2 25.7 mmol/L (20.0-31.0); Calcium 8.8 mg/dL (8.3-10.6); Chloride 109 mmol/L (98-107); Glucose 95 mg/dL (74-106); Potassium 4.1 mmol/L (3.5-5.1); Sodium 142 mmol/L (136-145)
[2025-10-25 07:34] LABS: Magnesium 2.1 mg/dL (1.6-2.6)
[2025-10-25 09:06] VITALS: BP 113/74; BP 120/79; BP 129/95; PULSE 67; PULSE 68; PULSE 70
[2025-10-25 10:59] VITALS: BP 138/88; PULSE 78; RESP 16; TEMP 37.3; O2SAT 100
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
--- NOTE | 2025-10-25 17:57 | PDOC.CMDIS ---
Date of service: 10/25/25 Time of Service: 17:57 LACE Index Scoring Tool Questions: Length of Stay (in days): 1 Was the patient admitted via the E.D.?: Yes E.D. Visits: 2 Answers: Total Score: 6 Risk of Readmission: Low Risk Care Management Discharge Plan Reason for Hospitalization: syncope Discharge Plan: Belen returned to her daughter's home today with no new services. She drove herself home via private vehicle. She will follow up with her PCP and discharge plan of care. She was happy to be going home. Patient/Family Education Needs: Review discharge instructions and limitations, discussion of self care needs including ask me three. SDOH Health Related Social Needs: Health related social needs risk of homeless material hardship house/econ circumstance Health related social needs details help w/ housing. Health related social needs details: help w/ housing.
[2025-10-28 16:52] LABS: Cannabinoids THC Positive (Negative)
== END 2025-10-25 13:53 | disposition home or self-care (01) ==
LOC: ER 20:25 → MS 23:40
PROVIDERS: Admitting Provider Family Medicine; Emergency Provider Physician Assistant; PCP Family Medicine; Responsible Provider Nurse Practitioner Family; Visit Provider Family Medicine
DX: R55 Syncope and collapse (principal); F14.90 Cocaine use, unspecified, uncomplicated; E03.9 Hypothyroidism, unspecified; E86.0 Dehydration; R41.89 Other symptoms and signs involving cognitive functions and awareness; N39.3 Stress incontinence (female) (male); G47.33 Obstructive sleep apnea (adult) (pediatric); E53.8 Deficiency of other specified B group vitamins; E66.9 Obesity, unspecified; Z68.45 Body mass index [BMI] 70 or greater, adult; M54.17 Radiculopathy, lumbosacral region; F32.3 Major depressive disorder, single episode, severe with psychotic features; F40.01 Agoraphobia with panic disorder; E78.5 Hyperlipidemia, unspecified; I10 Essential (primary) hypertension; Z87.820 Personal history of traumatic brain injury; Z87.891 Personal history of nicotine dependence; Z79.899 Other long term (current) drug therapy
CPT/HCPCS: 00123; 36415; 36416; 80048; 80053; 80307; 81025; 82962; 85027; 93005; 96360; 96361; 99285; 70450; 71046; 81003; 81015; 83735; 83880; 84439; 84443; 84484; 85025; 93010; 99222; 99239; G0378